=== PATIENT | male | born 2000 | race Caucasian/White ===

== ENCOUNTER 2021-04-05 15:41 | Emergency (ER) | payer OTHER ==
[~2021-04-05 15:41] MED LIST: MOTRIN600 MG PO
[2021-04-05 16:58] LABS: BASOPHIL 0.8 % (0-2); EOSINOPHIL 1.6 % (0-5); HCT 44.2 % (42.0-52.0); HGB 14.2 g/dl (13.2-18.0); LYMPHOCYTE 37.8 % (15-48); MCH 28.2 pg (25.0-31.0); MCHC 32.1 g/dL (32.0-36.0); MCV 87.7 fL (78.0-100.0); MONOCYTE 11.4 % (0-12); MPV 11.1 fL (6.0-9.5); NEUTROPHIL 48.1 % (41-80); NRBC 0; PLT 196 K/uL (150-400); RBC 5.04 M/uL (4.70-6.00); RDW 12.7 % (11.5-14.0); WBC 3.8 K/uL (4.0-10.5)
[2021-04-05 17:02] LABS: BUN/CREAT RATIO (CALC) 15.8 RATIO; CREATININE 0.95 mg/dL (0.67-1.17)
[2021-04-05 17:24] LABS: INFLUENZA A NAA NEGATIVE (NEGATIVE)
[2021-04-05 17:30] LABS: CORONAVIRUS 2019 SARS-COV-2 POSITIVE (NEGATIVE)
== END 2021-04-05 19:20 | disposition home or self-care (01) ==
LOC: FER 15:41
PROVIDERS: Nurse Practitioner Family
DX: U07.1 COVID-19 (principal); S00.93XA Contusion of unspecified part of head, initial encounter; X58.XXXA Exposure to other specified factors, initial encounter
CPT/HCPCS: 36415; 70450; 72125; 73080; 80048; 85025; 93005; J7030; U0002